=== PATIENT | male | born 1955 | race Caucasian/White ===

== ENCOUNTER 2019-10-25 06:24 | Day surgery (SDC) | payer OTHER ==
[2019-10-10 11:58] LABS: Absolute Lymphocytes (CBC) 1.8 K/uL (0.7-4.9); Basophils % 1.2 % (0-1.3); Hematocrit 45.4 % (39.6-49.0); Lymphocytes % 26.9 % (15.3-44.8); MPV 8.7 fL (7.6-11.3); RBC Red Blood Cell Count 4.76 M/uL (4.33-5.43)
[2019-10-10 12:01] LABS: Protime INR 1.06
[2019-10-10 12:06] LABS: Albumin 4.1 g/dL (3.4-5.0); Bilirubin Total 0.8 mg/dL (0.2-1.0); Potassium 3.9 mmol/L (3.5-5.1); Protein, Total 7.5 g/dL (6.4-8.2)
[2019-10-25] MEDS ORDERED: Ringers Lactate 1,000 ML IV ONE (06:47)
[2019-10-25] MEDS ORDERED: propofoL 200 MG/20 ML VIAL IV ONE (07:02)
[2019-10-25] MEDS ORDERED: MIDAZOLAM HCL 2 MG/2 ML INJ ONE (07:02)
[2019-10-25] MEDS ORDERED: dexAMETHasone 10 MG/ML VIAL ONE (07:02)
[2019-10-25] MEDS ORDERED: FENTANYL CITR 100 MCG/2 ML ONE (07:02)
[2019-10-25] MEDS ORDERED: LIDOCAINE 1% MPF 5 ML VIAL ONE (07:03)
[2019-10-25] MEDS ORDERED: CEFTRIAXONE/SWI 1gm 1 GM/10 ML SYR IV ONE (07:15)
[2019-10-25] MEDS ORDERED: GEMCITABINE HCL 1,000 MG in NA CHLORIDE 0.9% 26.3 ML IVPB ONE (08:00)
[2019-10-25] MEDS ORDERED: GLYCOPYRROLATE 0.2 MG/ML SYR ONE (08:01)
[2019-10-25] MEDS ORDERED: EPHEDRINE SULF 50 MG/ML VIAL ONE (08:04)
[2019-10-25] MEDS ORDERED: KETOROLAC 30 MG/ML INJ ONE (08:47)
[2019-10-25 10:46] VITALS: BP 128/68; TEMP 973; O2SAT 95
[2019-10-25] MEDS ORDERED: TRAMADOL HCL 50 MG TAB ONE ×2 (10:57→11:09)
--- NOTE | 2019-12-13 19:14 | OP ---
Date of Procedure: 10/25/2019 Surgeon: BLAKE COVARRUBIAS Preoperative Diagnosis: Recurrent bladder tumor. Postoperative Diagnosis: Recurrent bladder tumor. Procedure Performed: Cystoscopy and transurethral resection of bladder tumor. Anesthesia: General. Procedure In Detail: With the patient in modified dorsal lithotomy position on the cystoscopy table after the satisfactory induction of anesthesia, the genitalia were prepped and draped in the usual st erile fashion. The standard cystoscope was passed per urethra. The urethra and prostate were normal with the findings of some moderate BPH. There were multiple small bladder tumors in various areas o f the bladder. The ureteral orifices were normal and showed clear efflux. The cold cup biopsy force ps was used to remove all of the visible tumors and all areas of abnormality were fulgurated with the Bugbee electrode. This resulted in complete hemostasis and no sign of additional tumor present. At the end of the procedure, drainage from the cystoscope was clear and a Danielson catheter was inserted a nd intravesical gemcitabine chemotherapy was instilled and left in place for an hour after which it w as drained. The patient tolerated the procedure well. There were no complications. Blood loss was less than 20 mL. Counts were correct. Specimen: Multiple bladder tumor fragments. KRYSTAL/GISELA Voice ID: [id number] Report ID: [id number]
== END 2019-10-25 11:30 | disposition home or self-care (01) ==
LOC: OR 06:24
PROVIDERS: ATTEND Internal Medicine Hematology & Oncology
PROC: 3E0K8GC Introduction of Other Therapeutic Substance into Genitourinary Tract, Via Natural or Artificial Opening Endoscopic (ICD-10-PCS; 2019-10-25)
PROC: 0TBB8ZX Excision of Bladder, Via Natural or Artificial Opening Endoscopic, Diagnostic (ICD-10-PCS; principal; 2019-10-25 07:30)
DX: C67.9 Malignant neoplasm of bladder, unspecified (principal); I10 Essential (primary) hypertension; F41.9 Anxiety disorder, unspecified; Z87.891 Personal history of nicotine dependence; Z86.19 Personal history of other infectious and parasitic diseases
CPT/HCPCS: 85025; 36415; 85610; 88307; 85730; 80053; 52234; 51720; J2704; J2250; J3010; J1100; J0696; J9201; J7120; 88305